=== PATIENT | male | born 1960 ===

== ENCOUNTER 2020-07-14 19:09 | Inpatient (IN) | payer OTHER ==
[2020-07-14] MEDS ORDERED: Ondansetron ODT 4 MG TAB SL PRN (22:30)
[2020-07-14] MEDS ORDERED: Acetaminophen 325 MG TAB PO PRN (22:30)
[2020-07-14] MEDS ORDERED: Ondansetron PF 4 MG/2 ML Vial IVP PRN (22:30)
[2020-07-14] MEDS ORDERED: Dextrose 50% Abboject 50 ML SYRINGE SLOW IVP PRN (23:18)
[2020-07-14] MEDS ORDERED: Dextrose 5% in Water 1,000 ML IV PRN (23:18)
[2020-07-14] MEDS ORDERED: Furosemide 40 MG/4 ML VIAL SLOW IVP SCH (23:30)
[2020-07-14] MEDS ORDERED: Metoprolol Tartrate 5 MG/5 ML VIAL IVP PRN (23:35)
[2020-07-15 00:08] LABS: Troponin I 0.034 ng/mL (< 0.028)
--- NOTE | 2020-07-15 00:34 | HP ---
REASON FOR ADMISSION: Shortness of breath. HISTORY OF PRESENT ILLNESS: This is a 59-year-old male patient, who is an inmate. He has been short of breath for more than three months and his shortness of breath has been getting worse to the extent that he is barely able to do minimal exertion, even if he moves in bed, becomes more short of breath. He is also short of breath at rest, but able to tolerate it. He has been having off and on chest pains for more than a month. He had an open heart surgery three years ago and was advised to follow with Cardiology, but patient has been refusing to do so. He did have a COVID-19 a couple of months ago. He did not require hospitalization. He states that his shortness of breath was preexistent before him having been diagnosed with COVID-19 but seems to have been getting worse. He denies cough. Denies sputum production. Denies fevers. Denies chills. He describes the chest pain as localized in the retrosternal area, nonradiating, can occur at rest. He also notes that he recently pulled his shoulder and has been having back and shoulder pain, patient is morbidly obese, but did lose 30 pounds recently due to the lock down. PAST MEDICAL HISTORY: 1. Coronary artery disease, status post CABG. 2. Diabetes, type 2. 3. High cholesterol. 4. High blood pressure. 5. GERD. 6. Morbid obesity. 7. Documented sleep apnea. SOCIAL HISTORY: He used to be a smoker since age 14 and smoked one and half a pack a day, but quit smoking 12 years ago due to the fact that he is in senior care. Does not drink alcohol. FAMILY HISTORY: Negative for premature coronary artery disease. REVIEW OF SYSTEMS: All systems reviewed, except the above-mentioned shortness of breath, found to be negative. PHYSICAL EXAMINATION: GENERAL: Awake, alert, and oriented, does appear tachypneic. Does complain of shortness of breath whenever he moves, but able to finish a full sentence. VITAL SIGNS: His blood pressure is 158/64, heart rate of 72, temperature 98 degrees, and saturating 97% on 2 L nasal cannula. HEENT: Head is nontraumatic, normocephalic. Pupils equal, reactive. Extraocular movements are intact. Nonicteric sclerae. Well-injected conjunctivae. Oral mucosa normal. Nasal mucosa normal. NECK: Supple. No adenopathy. No murmur. Thyroid is not palpable. Trachea is midline. No supraclavicular adenopathy. HEART: S1, S2. Regular. No murmur. No gallops. No friction rubs. No displacement of PMI. LUNGS: Poor inspiratory effort. Symmetric crackles in bilateral bases. No wheezes. No rhonchi. ABDOMEN: Bowel sounds are positive. Nontender abdomen. No hepatosplenomegaly. EXTREMITIES: No lower extremity edema. No cyanosis. NEUROLOGIC: Cranial nerves 2 through 12 are within normal limits. Normal motor function. Normal sensory function. Normal reflexes. LABORATORY: Blood work shows WBC of 10, hemoglobin of 14.9, and platelets of 390. Sodium 138, potassium 4.8, bicarb 29, creatinine 0.8, alk phos 141, AST 13, and ALT 9. Initial troponin 0.037. Repeat troponin 0.036. BNP 149.1. EKG shows bigeminy. Per my read, a CT of the chest shows right upper lobe mass infiltrating into the anterior and middle mediastinum abutting the SVC without direct SVC invasion. Mass is likely amenable to percutaneous biopsy. 5 mm nodule superior segment right lower lobe, may reflect a small satellite lesion. No supraclavicular or left hilar adenopathy. ASSESSMENT AND PLAN: This is a 59-year-old male patient presenting with worsening shortness of breath. CAT scan of the chest did reveal a mass. His shortness of breath could be multifactorial due to morbid obesity, the mass, and possibly cardiac etiology. Cardiac. Patient will be admitted to telemetry. We will continue cycling his cardiac enzymes. We will control his blood pressure. We will continue with Plavix and his atorvastatin. We will change his Lasix from p.o. to IV and tomorrow we will order an echocardiogram. Pulmonary. Patient does have shortness of breath and that is worse with movement. We will have him on CPAP for tonight. I suspect that there is some element of obesity hypoventilation syndrome/sleep apnea, we will ask Pulmonary to give us their input on the mass that was found on the CAT scan. Endocrinology. Patient is diabetic. We will hold his metformin. He will be on insulin sliding scale. For deep venous thrombosis prophylaxis, he will be on Lovenox. Job ID: [id number]
[2020-07-15 03:24] VITALS: BMI 44.6
[2020-07-15 04:38] LABS: #Eosinphils 0.6 thou/uL (0.0-0.7); #Neutrophils 6.9 thou/uL (1.40-6.50); %Basophils 0.3 % (0.0-1.0); %Eosinophils 4.9 % (0.0-10.0); %Lymphocytes 26.3 % (21.0-51.0); %Monocytes 8.7 % (0.0-10.0); %Neutrophils 59.8 % (42.0-75.0); Hemoglobin 14.1 g/dL (14.0-18.0); Mean Corpuscular HGB CONC 31.8 g/dL (32.0-36.0); Mean Corpuscular Hemoglobin 25.1 pg (27.0-31.0); Mean Corpuscular Volume 78.9 fL (78.0-98.0); Mean Platelet Volume 7.5 fL (7.4-10.4); Platelet Count 370 thou/uL (130-400); RBC Distribution Width 14.1 % (11.5-14.5); Red Blood Cell (RBC) Count 5.64 mill/uL (4.70-6.10); White Blood Cell (WBC) Count 11.5 thou/uL (4.8-10.8)
[2020-07-15 05:03] LABS: Anion Gap 14 mmol/L (10-20); BUN (Urea Nitrogen) 11 mg/dL (8.4-25.7); Calc. Creatinine Clearance 227 mL/min (70-130); Calcium 9.3 mg/dL (7.8-10.44); Carbon Dioxide 24 mmol/L (22-29); Chloride 103 mmol/L (98-107); Estimated GFR-MDRD Greater than 90; Glucose 98 mg/dL (70-105); Potassium 4.3 mmol/L (3.5-5.1); Sodium 137 mmol/L (136-145)
[2020-07-15] MEDS: Acetaminophen 325 MG TAB PO PRN ×3 (05:10→22:29)
[2020-07-15] MEDS: glipiZIDE 5 MG TAB PO SCH ×2 (07:41→16:33)
[2020-07-15] MEDS ORDERED: Enoxaparin Sodium 40 MG/0.4 ML SYRINGE SC SCH (09:00)
[2020-07-15] MEDS: Loratadine 10 MG TAB PO SCH (09:06)
[2020-07-15] MEDS: Carvedilol 25 MG TAB PO SCH ×2 (09:06→22:13)
[2020-07-15] MEDS: Lisinopril 20 MG TAB PO SCH (09:06)
[2020-07-15] MEDS: Aspirin 81 mg Enteric Coated Tablet PO SCH (09:07)
[2020-07-15] MEDS: Amlodipine 10 MG TAB PO SCH (09:07)
[2020-07-15] MEDS ORDERED: Mometasone 200 MCG/Formoterol 5 MCG 120 PUFF INHALER INH SCH (10:00)
[2020-07-15] MEDS ORDERED: Furosemide 40 MG TAB PO SCH (10:00)
[2020-07-15] MEDS: methylPREDNISolone Sod Succ 40 MG VIAL IVP SCH ×2 (13:04→17:14)
[2020-07-15] MEDS: HumaLOG 300 UNITS/3 ML VIAL SC PRN ×2 (13:13→18:25)
--- NOTE | 2020-07-15 17:29 | PDOC.HOSPP ---
- Subjective Encounter Date: 07/15/20 Encounter Time: 10:30 Subjective: pt up in bed still complains of sob - Objective Vital Signs & Weight: Vital Signs (12 hours) Temp Pulse Resp BP BP Pulse Ox 07/15/20 15:37 98 F 74 17 131/63 94 L 07/15/20 12:36 36 L 24 H 98 07/15/20 11:21 97.9 F 86 22 H 125/68 98 07/15/20 10:34 56 L 20 93 L 07/15/20 09:07 77 149/62 H 07/15/20 09:06 149/62 H 07/15/20 07:25 97.9 F 77 20 149/62 H 94 L Weight Weight 302 lb I&O: 07/14/20 07/15/20 07/16/20 06:59 06:59 06:59 Intake Total 360 Balance 360 Result Diagrams: 07/15/20 04:18 07/15/20 04:18 Additional Labs: Accuchecks 07/15/20 07/15/20 07/15/20 17:23 11:33 05:11 POC Glucose 165 H 159 H 107 H Hospitalist ROS - Review of Systems Respiratory: reports: shortness of breath Cardiovascular: denies: chest pain, palpitations, orthopnea, paroxysmal noc. dyspnea, edema, light headedness, other Gastrointestinal: denies: nausea, vomiting, abdominal pain, diarrhea, constipation, melena, hematochezia, other - Medication Medications: Active Medications Generic Name Dose Route Start Last Admin Trade Name Freq PRN Reason Stop Dose Admin Acetaminophen 650 mg 07/14/20 23:13 07/15/20 13:14 Acetaminophen 325 Mg Tab PO 650 mg BID PRN Administration Mild Pain (1-3) Albuterol/Ipratropium 3 ml 07/15/20 13:00 07/15/20 12:36 Ipratropium/Albuterol Sulfate 3 Ml Neb NEB 3 ml [id number] LUIS ALFREDO Administration Amlodipine Besylate 10 mg 07/15/20 09:00 07/15/20 09:07 Amlodipine 10 Mg Tab PO 10 mg DAILY LUIS ALFREDO Administration Aspirin 81 mg 07/15/20 09:00 07/15/20 09:07 Aspirin 81 Mg Enteric Coated Tablet PO 81 mg DAILY LUIS ALFREDO Administration Carvedilol 25 mg 07/15/20 09:00 07/15/20 09:06 Carvedilol 25 Mg Tab PO 25 mg BID LUIS ALFREDO Administration Enoxaparin Sodium 40 mg 07/15/20 09:00 07/15/20 09:07 Enoxaparin Sodium 40 Mg/0.4 Ml Syringe SC 40 mg 0900 LUIS ALFREDO Administration Glipizide 5 mg 07/15/20 07:30 07/15/20 16:33 Glipizide 5 Mg Tab PO 5 mg BID-AC LUIS ALFREDO Administration Insulin Human Lispro 0 units 07/14/20 23:18 07/15/20 13:13 Humalog 300 Units/3 Ml Vial SC 2 unit .MILD SLIDING SCALE PRN Administration Mild Correctional Scale Lisinopril 20 mg 07/15/20 09:00 07/15/20 09:06 Lisinopril 20 Mg Tab PO 20 mg DAILY LUIS ALFREDO Administration Loratadine 10 mg 07/15/20 09:00 07/15/20 09:06 Loratadine 10 Mg Tab PO 10 mg DAILY LUIS ALFREDO Administration Methylprednisolone Sodium Succinate 40 mg 07/15/20 12:00 07/15/20 17:14 Methylprednisolone Sod Succ 40 Mg Vial IVP 40 mg Q6HR LUIS ALFREDO Administration Pantoprazole Sodium 40 mg 07/15/20 09:00 07/15/20 09:07 Pantoprazole 40 Mg Tab PO 40 mg DAILY LUIS ALFREDO Administration - Exam Neck: negative: supple, symmetric, no JVD, no thyromegaly, no lymphadenopathy, no carotid bruit, JVD Heart: negative: RRR, no murmur, no gallops, no rubs, normal peripheral pulses, irregular, diminshed peripheral pulses, murmur present, II/IV, III/IV Respiratory: negative: CTAB, no wheezes, no rales, no ronchi, normal chest expansion, no tachypnea, normal percussion, rales, rhonchi, tachypneic, wheezes Gastrointestinal: negative: soft, non-tender, non-distended, normal bowel sounds, no palpable masses, no hepatomegaly, no splenomegaly, no bruit, no guarding, no rigidity, tender to palpation, distended, diminished bowl sounds, voluntary guarding Hosp A/P (1) SOB (shortness of breath) Code(s): R06.02 - SHORTNESS OF BREATH Status: Acute
--- NOTE | 2020-07-15 17:40 | PDOC.HOSPP ---
- Subjective Encounter Date: 07/15/20 Encounter Time: 10:55 Subjective: pt up in bed still complains of sob - Objective Vital Signs & Weight: Vital Signs (12 hours) Temp Pulse Resp BP BP Pulse Ox 07/15/20 15:37 98 F 74 17 131/63 94 L 07/15/20 12:36 36 L 24 H 98 07/15/20 11:21 97.9 F 86 22 H 125/68 98 07/15/20 10:34 56 L 20 93 L 07/15/20 09:07 77 149/62 H 07/15/20 09:06 149/62 H 07/15/20 07:25 97.9 F 77 20 149/62 H 94 L Weight Weight 302 lb I&O: 07/14/20 07/15/20 07/16/20 06:59 06:59 06:59 Intake Total 360 Balance 360 Result Diagrams: 07/15/20 04:18 07/15/20 04:18 Additional Labs: Accuchecks 07/15/20 07/15/20 07/15/20 17:23 11:33 05:11 POC Glucose 165 H 159 H 107 H Hospitalist ROS - Review of Systems Respiratory: reports: shortness of breath Cardiovascular: denies: chest pain, palpitations, orthopnea, paroxysmal noc. dyspnea, edema, light headedness, other Gastrointestinal: denies: nausea, vomiting, abdominal pain, diarrhea, constipation, melena, hematochezia, other - Medication Medications: Active Medications Generic Name Dose Route Start Last Admin Trade Name Freq PRN Reason Stop Dose Admin Acetaminophen 650 mg 07/14/20 23:13 07/15/20 13:14 Acetaminophen 325 Mg Tab PO 650 mg BID PRN Administration Mild Pain (1-3) Albuterol/Ipratropium 3 ml 07/15/20 13:00 07/15/20 12:36 Ipratropium/Albuterol Sulfate 3 Ml Neb NEB 3 ml [id number] LUIS ALFREDO Administration Amlodipine Besylate 10 mg 07/15/20 09:00 07/15/20 09:07 Amlodipine 10 Mg Tab PO 10 mg DAILY LUIS ALFREDO Administration Aspirin 81 mg 07/15/20 09:00 07/15/20 09:07 Aspirin 81 Mg Enteric Coated Tablet PO 81 mg DAILY LUIS ALFREDO Administration Carvedilol 25 mg 07/15/20 09:00 07/15/20 09:06 Carvedilol 25 Mg Tab PO 25 mg BID LUIS ALFREDO Administration Enoxaparin Sodium 40 mg 07/15/20 09:00 07/15/20 09:07 Enoxaparin Sodium 40 Mg/0.4 Ml Syringe SC 40 mg 0900 LUIS ALFREDO Administration Glipizide 5 mg 07/15/20 07:30 07/15/20 16:33 Glipizide 5 Mg Tab PO 5 mg BID-AC LUIS ALFREDO Administration Insulin Human Lispro 0 units 07/14/20 23:18 07/15/20 13:13 Humalog 300 Units/3 Ml Vial SC 2 unit .MILD SLIDING SCALE PRN Administration Mild Correctional Scale Lisinopril 20 mg 07/15/20 09:00 07/15/20 09:06 Lisinopril 20 Mg Tab PO 20 mg DAILY LUIS ALFREDO Administration Loratadine 10 mg 07/15/20 09:00 07/15/20 09:06 Loratadine 10 Mg Tab PO 10 mg DAILY LUIS ALFREDO Administration Methylprednisolone Sodium Succinate 40 mg 07/15/20 12:00 07/15/20 17:14 Methylprednisolone Sod Succ 40 Mg Vial IVP 40 mg Q6HR LUIS ALFREDO Administration Pantoprazole Sodium 40 mg 07/15/20 09:00 07/15/20 09:07 Pantoprazole 40 Mg Tab PO 40 mg DAILY LUIS ALFREDO Administration - Exam Heart: negative: RRR, no murmur, no gallops, no rubs, normal peripheral pulses, irregular, diminshed peripheral pulses, murmur present, II/IV, III/IV Respiratory: negative: CTAB, no wheezes, no rales, no ronchi, normal chest exp ansion, no tachypnea, normal percussion, rales, rhonchi, tachypneic, wheezes Gastrointestinal: negative: soft, non-tender, non-distended, normal bowel sounds, no palpable masses, no hepatomegaly, no splenomegaly, no bruit, no guarding, no rigidity, tender to palpation, distended, diminished bowl sounds, voluntary guarding Extremities: negative: no cyanosis, no clubbing, no edema, 1+ LE edema, 2+ LE edema, clubbing Hosp A/P (1) SOB (shortness of breath) Code(s): R06.02 - SHORTNESS OF BREATH Status: Acute (2) CAD (coronary artery disease) Code(s): I25.10 - ATHSCL HEART DISEASE OF [place] CORONARY ARTERY W/O ANG PCTRS Status: Acute (3) Lung mass Code(s): R91.8 - OTHER NONSPECIFIC ABNORMAL FINDING OF LUNG FIELD Status: Acute - Plan pt states that he is having sob. He is not hypoxic. echo ef is 50-55% no significant abnormalities. will get lung biopsy. BNP mildly elevated no significant pitting edema. He is lost some weight not sure due to poor food in correction vs malignancy. pt does not use cpap in correction.
[2020-07-15] MEDS: Mometasone 200 MCG/Formoterol 5 MCG 120 PUFF INHALER INH SCH (19:18)
[2020-07-15] MEDS ORDERED: Atorvastatin Calcium 40 MG TAB PO SCH (21:00)
[2020-07-15] MEDS ORDERED: Clopidogrel Bisulfate 75 MG TAB PO SCH (21:00)
[2020-07-16] MEDS: methylPREDNISolone Sod Succ 40 MG VIAL IVP SCH ×3 (01:11→11:49)
[2020-07-16 04:01] LABS: #Basophils 0.1 thou/uL (0.0-0.2); #Lymphocytes 1.1 thou/uL (1.20-3.40); #Monocytes 0.1 thou/uL (0.11-0.59); #Neutrophils 13.4 thou/uL (1.40-6.50); %Basophils 0.8 % (0.0-1.0); %Eosinophils 0.1 % (0.0-10.0); %Lymphocytes 7.7 % (21.0-51.0); %Monocytes 0.8 % (0.0-10.0); %Neutrophils 90.6 % (42.0-75.0); Hemoglobin 13.8 g/dL (14.0-18.0); Mean Corpuscular HGB CONC 31.6 g/dL (32.0-36.0); Mean Corpuscular Hemoglobin 25.3 pg (27.0-31.0); Mean Corpuscular Volume 79.9 fL (78.0-98.0); Mean Platelet Volume 8.4 fL (7.4-10.4); Platelet Count 383 thou/uL (130-400); Red Blood Cell (RBC) Count 5.48 mill/uL (4.70-6.10); White Blood Cell (WBC) Count 14.8 thou/uL (4.8-10.8)
[2020-07-16 04:18] LABS: Anion Gap 17 mmol/L (10-20); BUN (Urea Nitrogen) 18 mg/dL (8.4-25.7); Calc. Creatinine Clearance 188 mL/min (70-130); Calcium 9.3 mg/dL (7.8-10.44); Carbon Dioxide 18 mmol/L (22-29); Chloride 103 mmol/L (98-107); Estimated GFR-MDRD Greater than 90; Glucose 167 mg/dL (70-105); Potassium 4.4 mmol/L (3.5-5.1); Sodium 134 mmol/L (136-145)
[2020-07-16 04:27] LABS: PTT 30.9 sec (22.9-36.1); Prothrombin Time 13.1 sec (12.0-14.7)
[2020-07-16] MEDS: Mometasone 200 MCG/Formoterol 5 MCG 120 PUFF INHALER INH SCH (05:16)
--- NOTE | 2020-07-16 06:42 | CON ---
DATE OF CONSULTATION: HISTORY OF PRESENT ILLNESS: Tra Gonzalez is a 59-year-old morbidly obese gentleman from the care home system in [place], who presented to the ER with chest pain and shortness of breath, which has been getting worse for the last 2 months as per the patient. He has been incarcerated for 12 years, has not been smoking, but prior to that, was smoking a pack a day for most of his life. He denies any cough or wheezing. He has lost about 20 pounds, he says. Apparently, a diagnosis of coronavirus infection was made several months ago. PAST MEDICAL HISTORY: Pertinent for; 1. Congestive heart failure. 2. History of coronary artery disease. 3. History of diabetes. 4. Morbid obesity. 5. History of reflux. 6. Hyperlipidemia. PAST SURGICAL HISTORY: Include bypass surgery in [place]. Previous coronary artery disease. Previous smoker. HOME MEDICATIONS: Include; 1. Metformin 1000 b.i.d. 2. Glipizide 5 twice a day. 3. Omeprazole 20. 4. Claritin 10. 5. Lisinopril 20. 6. Lasix 40 b.i.d. 7. Plavix 75. 8. Coreg 25. 9. Atorvastatin 40. 10. Aspirin 81. 11. Amlodipine 10. 12. Tylenol 650. ALLERGIES: NONSTEROIDAL. REVIEW OF SYSTEMS: Otherwise, unremarkable. PHYSICAL EXAMINATION: VITAL SIGNS: His temperature is 97, pulse 77, blood pressure 149/62, sats 94% on room air. He said he is feeling better with the BiPAP. CHEST: Decreased breath sounds. No wheezing. CARDIAC: Normal S1, S2. No gallops. ABDOMEN: No masses. DIAGNOSTIC DATA: X-ray shows a large right upper lung mass, CT scan confirms this. BNP is normal at 149. White count 14,000, H and H are 11 and 43, platelet count is normal. His lytes are normal. IMPRESSION AND PLAN: 1. Right lung mass extending into the anterior and middle mediastinum. 2. Former smoker. 3. Coronary artery disease. 4. Diabetes. 5. Hypertension. 6. Morbid obesity. 7. Probably underlying sleep apnea, never been tested. The patient's old records are in [place] . Best option for him is to be transferred to [place], where he can undergo a CT-guided biopsy. He is already taking several anticoagulation medications, therefore more than likely Radiology is not going to do a CT-guided biopsy here in next several days until his aspirin, Plavix, and Lovenox have all been discontinued. He has no evidence of congestive heart failure. I will stop his IV Lasix, put him back on his p.o. medication. In the meantime, Pulmonary is going to offer neb treatments and low-dose steroids. Consultation note, 70 minutes, 50% direct patient care. Job ID: [id number]
[2020-07-16] MEDS ORDERED: Furosemide 40 MG TAB PO SCH (07:30)
[2020-07-16] MEDS: Loratadine 10 MG TAB PO SCH (10:13)
[2020-07-16] MEDS: glipiZIDE 5 MG TAB PO SCH (10:13)
[2020-07-16] MEDS: Carvedilol 25 MG TAB PO SCH (10:13)
[2020-07-16] MEDS: Amlodipine 10 MG TAB PO SCH (10:13)
[2020-07-16] MEDS: Aspirin 81 mg Enteric Coated Tablet PO SCH (10:13)
[2020-07-16] MEDS: Lisinopril 20 MG TAB PO SCH (10:13)
--- NOTE | 2020-07-16 10:34 | PRG ---
DATE OF SERVICE: 07/16/2020 SUBJECTIVE: Tra Gonzalez this morning is awake, alert, and responsive. He is better. OBJECTIVE: VITAL SIGNS: Temperature 97, pulse 70, respiratory rate 18, saturations are 95% on CPAP, he is off this morning. Blood pressure 120/66. CHEST: No wheezing. No crackles. CARDIAC: Normal S1 and S2. No gallops. ABDOMEN: No masses. ASSESSMENT: Large right upper lung mass. PLAN: The patient has multiple medical problems including COPD, sleep apnea, and obesity, probably needs to be transferred to [place], where he has had his previous workup. Job ID: [id number]
--- NOTE | 2020-07-16 10:48 | PQF ---
CLINICAL DOCUMENTATION CLARIFICATION FORM: Dear Dr. STARKS Date: 07/16/20 1030 Please exercise your independent, professional judgment in responding to the clarification form. Clinical indicators are provided on the bottom of this form for your review. Please check appropriate box(es): [ ] Acute Respiratory Failure: [ ] with Hypoxia [ ] with Hypercapnia [ ] Acute On Chronic Respiratory Failure: [ ] with Hypoxia [ ] with Hypercapnia [ x ] Acute Respiratory Failure due to: (etiology) multifactoral ( lung mass, or CAD) [ ] Chronic Respiratory Failure only [ ] with Hypoxia [ ] with Hypercapnia [ ] Hypoxia [ ] Other diagnosis [ ] Unable to determine In addition, please specify: Present on Admission (POA): [x ] Yes [ ] No [ ] Unable to determine For continuity of documentation, please document condition throughout progress notes and discharge summary. Thank You. To be completed by CDI/Coding staff for physician review: CLINICAL INDICATORS - SIGNS / SYMPTOMS / LABS / RESULTS AND LOCATION IN MR 07/15 H&P ([facility]) HAS BEEN SHORT OF BREATH FOR MORE THAN 3 MONTHS AND HIS SHORTNESS OF BREATH HAS BEEN GETTING WORSE TO THE EXTENT THAT HE IS BARELY ABLE TO DO MINIMAL EXERTION, EVEN IF HE MOVES IN BED, BECOMES MORE SHORT OF BREATH. 07/15 PN ([facility]UONG) PT IS UP IN BED, STILL COMPLAINS OF SOB; A/P 1). SHORTNESS OF BREATH, ACUTE, 2). CAD, 3). LUNG MASS 07/16 CONSULT ([facility]) IMPRESSION AND PLAN: 1. RIGHT LUNG MASS EXTENDING INTO THE ANTERIOR AND MIDDLE MEDIASTINUM RISK FACTORS / RESULTS AND LOCATION IN MR COVID 19 DX COUPLE OF MONTHS AGO, MORBID OBESITY, LUNG MASS ( H&P/ [facility]) 07/14 TREATMENTS / RESULTS AND LOCATION IN MR PULMONOLOGY CONSULT( 07/16 / [facility]) SUPPLEMENTAL OXYGEN (07/14-PRESENT) Acute Respiratory Failure: ABG pH < 7.35 or > 7.45; Decreased oxygen saturation (<90% room air or < 95% on oxygen); PCO2 > 50 mm Hg; PO2 < 60 mm Hg; Labored or rapid respirations ARDS: Dx Criteria [[place] ARDS]: Respiratory symptoms within one week of a known clinical insult (e.g. shock, infection, surgery, trauma) Bilateral opacities in CXR/Chest CT not due to CHF or fluid THANK YOU! CDS Signature: Cidny Neri RN Phone #: [phone] Date: 07/16/2020 This is a permanent part of the Medical Record [facility]
[2020-07-16 12:08] VITALS: BP 130/60; TEMP 97.7
[2020-07-16] MEDS: HumaLOG 300 UNITS/3 ML VIAL SC PRN (12:11)
--- NOTE | 2020-07-16 14:22 | DIS ---
DATE OF ADMISSION: 07/14/2020 DATE OF DISCHARGE: 07/16/2020 DISCHARGE DIAGNOSES: 1. Shortness of breath. 2. Lung mass. 3. Coronary artery disease. 4. Hypertension. 5. Obesity. 6. Possible sleep apnea. HOSPITAL COURSE: The patient is a 59-year-old male, who initially presented to the hospital on 07/15 with complaints of shortness of breath. The patient has a history of coronary artery disease, status post bypass x2 and stent about 2 years ago per the patient. I do not have any records of this patient. The patient underwent a CT chest with contrast which indicated a right lung mass. At this time, we tried to do a biopsy, however, since the patient was on aspirin and Plavix, unable to do so. The patient at this time was worked up for possible heart failure. The patient's echocardiogram indicated EF of 50% to 55%, with mild left ventricular hypertrophy. His valves appeared fairly stable. His BNP was 149. Also, the patient was seen by Pulmonology, who recommended to transfer the patient for biopsy. The patient's CT chest indicated right upper lobe mass infiltrates into the anterior and middle mediastinum abutting in the SVC without direct SVC invasion. The mass likely amenable to percutaneous biopsy. He also has a 5 mm nodule in superior segment of the right lower lobe that reflects a small satellite lesion. At this time, the patient was put on steroids for possible COPD exacerbation; however, this is unclear since he has no wheezing and no cough. The patient also is obese. The patient tolerated well when he was put on CPAP, he stated that helped him and that made him feel better. Again unclear etiology of his shortness of breath, it could be multiple, multifactorial. The patient at this time will be discharged to his [facility]. HOME MEDICATIONS: 1. Aspirin 81 mg daily. 2. Norvasc 10 mg daily. 3. Atorvastatin 40 mg daily. 4. Carvedilol 25 mg b.i.d. 5. Clopidogrel 75 mg at bedtime. 6. Lasix 40 mg b.i.d. 7. Glipizide 5 mg b.i.d. 8. Lisinopril 20 mg daily. 9. Omeprazole 20 mg daily. 10. Metformin 1000 mg b.i.d. The patient was again never hypoxic. The echocardiogram and the CT did not show any right-sided straining, unlikely to be pulmonary embolism. He had normal right ventricular size and function. PHYSICAL EXAMINATION: VITAL SIGNS: On discharge; temperature 97.7, 80, 18, 93% on room air, 130/60. GENERAL: He is awake, alert, and oriented x3. Does not appear in distress. CV: S1, S2 present. No murmurs, rubs, or gallops. It was noted that he will be discharged to [facility]. Job ID: [id number]
== END 2020-07-16 14:00 | disposition short-term general hospital (02) | DRG 189 ==
LOC: 2NO 19:09
PROVIDERS: ADMIT Internal Medicine; ATTEND Internal Medicine
PROC: 5A09357 Assistance with Respiratory Ventilation, Less than 24 Consecutive Hours, Continuous Positive Airway Pressure (ICD-10-PCS; principal; 2020-07-14)
PROC: 3E0234Z Introduction of Serum, Toxoid and Vaccine into Muscle, Percutaneous Approach (ICD-10-PCS; 2020-07-15)
DX: J96.00 Acute respiratory failure, unspecified whether with hypoxia or hypercapnia (principal); Z68.41 Body mass index [BMI] 40.0-44.9, adult; J44.1 Chronic obstructive pulmonary disease with (acute) exacerbation; R91.8 Other nonspecific abnormal finding of lung field; I25.10 Atherosclerotic heart disease of native coronary artery without angina pectoris; E11.9 Type 2 diabetes mellitus without complications; E78.00 Pure hypercholesterolemia, unspecified; K21.9 Gastro-esophageal reflux disease without esophagitis; E66.01 Morbid (severe) obesity due to excess calories; I50.9 Heart failure, unspecified; I11.0 Hypertensive heart disease with heart failure; G47.30 Sleep apnea, unspecified; Z95.1 Presence of aortocoronary bypass graft; Z23 Encounter for immunization; Z86.19 Personal history of other infectious and parasitic diseases; Z87.891 Personal history of nicotine dependence; Z79.899 Other long term (current) drug therapy; Z79.02 Long term (current) use of antithrombotics/antiplatelets; Z79.82 Long term (current) use of aspirin; Z79.84 Long term (current) use of oral hypoglycemic drugs; Z88.8 Allergy status to other drugs, medicaments and biological substances
CPT/HCPCS: 36415; 36416; 80048; 83735; 85025; 85610; 85730; 90471; 90732; 93306; 94640; 94660; 94664; G0009; J1650; J1940; J2920; J7620